=== PATIENT | male | born 1975 | race Caucasian/White ===

== ENCOUNTER 2021-11-13 15:19 | Inpatient (IN) | payer MEDICAID, SELFPAY ==
--- NOTE | 2021-11-13 15:27 | ED.C_ITS ---
HPI - Psych General: Chief Complaint: Psychiatric Symptoms Stated Complaint: PARANOID/ HALLUCINATING Time Seen by Provider: 11/13/21 15:26 History of Present Illness: Mr. Elizondo is a 46-year-old gentleman with reported history of paranoid schizophrenia not currently on medication and unclear of what medication he was previously on who presents to the emergency department due to paranoia and hallucinations. The patient himself offers very limited insight into his current mental state. He was observed by law enforcement talking to himself though he denies hallucinations. He reports that he has been walking a lot lately and has some mild leg discomfort but no injuries or other medical complaints. He reports no history of psychiatric hospitalizations and says that he previously followed at the [facility]. No other specific changes in health, exacerbating, or alleviating factors identified. Duration: getting worse Exacerbating factors: drug use Context: recent drug abuse and not taking psychiatric medications Associated symptoms: Reports auditory hallucinations and delusions Review of Systems General: Reports: 10 or more systems reviewed and unremarkable except in HPI a nd below Psych: Reports: auditory hallucinations [facility] ED PFSH: Medical History (Updated 11/25/21 @ 21:41 by Herbie Dee MD) Schizophrenia Surgical History (Updated 11/25/21 @ 21:41 by Herbie Dee MD) No significant past surgical history Physical Exam Const: COMMON NORMALS: alert GENERAL APPEARANCE: cooperative and well developed HENMT: COMMON NORMALS: normocephalic and atraumatic HEAD & SCALP: normocephalic and atraumatic THROAT: posterior oropharynx normal Eye: COMMON NORMALS: conjunctivae normal CONJUNCTIVA: Yes conjunctivae normal SCLERA: sclerae normal Neck/C-Spine: COMMON NORMALS: supple GENERAL: Yes trachea midline Resp: COMMON NORMALS: normal respiratory effort EFFORT & INSPECTION: Yes able to speak in complete sentences Cardio: COMMON NORMALS: regular rate and regular rhythm RATE: regular rate RHYTHM: regular rhythm GI: COMMON NORMALS: Soft to palpation PALPATION: Yes Soft to palpation and No Tenderness to palpation present (GI) Extremity: GENERAL: Yes normal exam except as noted and No edema Neuro: COMMON NORMALS: moves all extremities SENSORIUM/ORIENTATION: Yes alert and No Orientation impaired Psych: THOUGHT CONTENT: Yes delusions, Yes Hallucination(s) present and Yes Derealization present Course ED course: - Patient was seen and evaluated by me at bedside -Vital signs obtained - Initial evaluation notable for exam as above - Labs personally interpreted by me -Nicotine patch given - Labs notable for no leukocytosis, normal hemoglobin. No acute metabolic derangement to explain symptoms. Toxic ingestions negative, urine pending. - Upon serial reexamination after treatment the patient was similar - Based on patient history, evaluation, and testing as interpreted the most likely cause of the patient's condition is uncontrolled schizophrenia off medications -Based on ED evaluation at this point there is no obvious condition that would preclude the patient from inpatient management of psychiatric concerns - Admitting service was contacted and Dr Bhakta with psychiatry service agreed to admit the patient - Patient was admitted without further deterioration or significant events. Note: Click bubbles or prepopulated cash in note writing are used for assistance with data collection and billing and are inherently more limited than narrative and other text portions of this note. Please use narrative for additional clinical history and defer to narrative/free test for any case of contradictory information. If information appears in only free text or click bubble it should be considered present or absent as reported. Please contact note engineering writer for clarifications of clinical information or contradictory information. MDM is a brief summary, contradictory or erroneous seeming information should be clarified and full note should be reviewed. Vital Signs: Vital signs: Vital Signs Temperature 98.0 F 11/17/21 14:29 Pulse Rate 105 H 11/17/21 14:29 Respiratory Rate 18 11/17/21 14:29 Blood Pressure 108/76 11/17/21 14:29 Pulse Oximetry 96 11/17/21 14:29 Oxygen Delivery Wv thod 11/17/21 06:00 MDM - Psych Medical Decision Making 46-year-old gentleman with history schizophrenia not currently taking medications presenting with uncontrolled schizophrenia symptoms. Admitted for further management. Medical Records I reviewed the patient's medical records. Lab Data I reviewed the patient's lab results. : 11/13/21 16:29 11/13/21 16:29 Laboratory Results WBC 6.8 10^3/uL (4.0-10.0) 11/13/21 16: RBC 5.07 10^6/uL (4.1-5.3) 11/13/21 16: Hgb 13.0 g/dL (11.7-16.6) 11/13/21 16: Hct 40.9 % (42.0-52.0) L 11/13/21 16: MCV 80.7 fl (80-94) 11/13/21 16: MCH 25.6 pg (28.0-34.0) L 11/13/21 16: MCHC 31.8 g/dL (30.0-36.0) 11/13/21 16: RDW 13.2 % (12.1-15.1) 11/13/21: Plt Count 207 10^3/cmm (130-400) 11/13/21 16: MPV 10.4 fL (7.4-10.4) 11/13/21: Neut % (Auto) 55.7 % 11/13/21: Lymph % (Auto) 29.1 % 11/13/21: Karnes % (Auto) 8.6 % 11/13/21: Eos % (Auto) 5.6 % 11/13/21: Baso % (Auto) 0.7 % 11/13/21: Neut # (Auto) 3.80 10^3/uL (1.8-7.7) 11/13/21 16: Lymph # (Auto) 2.0 10^3/uL (0.8-4.8) 11/13/21: Karnes # (Auto) 0.6 10^3/uL (0.2-0.9) 11/13/21: Eos # (Auto) 0.4 10^3/uL (0.0-0.8) 11/13/21: Baso # (Auto) 0.1 10^3/uL (0.0-0.1) 11/13/21: Nucleated RBC % (auto) 0 % 11/13/21: Nucleated RBCs # 0.0 /100WBC 11/13/21 16: Sodium 139 mmol/L (136-145) 11/13/21 16: Potassium 3.7 mmol/L (3.5-5.1) 11/13/21 16: Chloride 102 mmol/L (98-107) 11/13/21 16: Carbon Dioxide 28 mmol/L (22-29) 11/13/21 16:29 Anion Gap 12.7 (5-19) 11/13/21 16:29 BUN 7 mg/dL (6-20) 11/13/21 16:29 Creatinine 0.7 mg/dL (0.7-1.2) 11/13/21 16:29 GFR Calculation 120.9 mL/min (90-130) 11/13/21 16:29 Glucose 89 mg/dL (65-115) 11/13/21 16:29 Calculated Osmolality 285 mOsm/kg (285-295) 11/13/21 16:29 Calcium 9.5 mg/dL (8.5-10.5) 11/13/21 16:29 Total Bilirubin 0.4 mg/dL (0.15-1.2) 11/13/21 16:29 AST 19 U/L (0-40) 11/13/21 16:29 ALT 18 U/L (0-41) 11/13/21 16:29 Alkaline Phosphatase 84 U/L (40-130) 11/13/21 16:29 Total Protein 7.2 g/dL (6.6-8.7) 11/13/21 16:29 Albumin 4.3 g/dL (3.5-5.2) 11/13/21 16:29 Globulin 2.9 g/dL (1.3-4.6) 11/13/21 16:29 TSH 0.67 uIU/mL (0.27-4.20) 11/13/21 16:29 Salicylates < 0.3 mg/dL (3-10) L 11/13/21 16:29 Acetaminophen < 5.0 ug/mL (10-30) L 11/13/21 16:29 Ethyl Alcohol < 10 mg/dL (0-10) 11/13/21 16:29 Discharge Plan Discharge Patient Disposition: Admitted As Inpatient Admit Provider: Hang Bhakta Clinical Impression: Acute psychosis Condition: Stable Discharge Diet: Regular Discharge Activity: Resume usual activity Coding Level of Care Code ED Wire Weaver Cloth for Citlali Mcallister
[2021-11-13 15:28] VITALS: BMI 31.2
[2021-11-13 15:32] VITALS: PULSE 82; RESP 16; TEMP 36.7; O2SAT 98
[2021-11-13 16:17] VITALS: BP 122/76; PULSE 90; RESP 16; O2SAT 100
--- NOTE | 2021-11-13 16:36 | PC.NURSE ---
Pt reports he was being held for 24 hours but was not under arrest, but that he needed medications refilled so the police brought him to the ED. Pt denies hallucinations, SI/HI, dizziness, lightheadedness, nausea, vomiting, chest pain, or shortness of breath. Caity and katiuska brought to pt.
[2021-11-13 16:47] LABS: Basophils # 0.1 10^3/uL (0.0-0.1); Basophils % 0.7 %; Eosinophils # 0.4 10^3/uL (0.0-0.8); Eosinophils % 5.6 %; Hematocrit 40.9 % (42.0-52.0); Lymphocytes % 29.1 %; Mean Corpuscular HGB Conc 31.8 g/dL (30.0-36.0); Mean Corpuscular Hemoglobin 25.6 pg (28.0-34.0); Mean Corpuscular Volume 80.7 fl (80-94); Mean Platelet Volume 10.4 fL (7.4-10.4); Monocytes # 0.6 10^3/uL (0.2-0.9); Monocytes % 8.6 %; Neutrophils % 55.7 %; Nucleated Red Blood Cells % 0 %; Platelet Count 207 10^3/cmm (130-400); Red Blood Count 5.07 10^6/uL (4.1-5.3); Red Cell Distribution Width 13.2 % (12.1-15.1); White Blood Count 6.8 10^3/uL (4.0-10.0)
[2021-11-13] MEDS: nicotine 14 mg Patch 1 PATCH TRANSDERMA (16:59)
--- NOTE | 2021-11-13 17:00 | PC.NURSE ---
pt was observed to be vaping in his room. vape removed and placed with other belongings. Charge nurse and physician notified. New orders for nicotine patch
[2021-11-13 17:20] LABS: Alanine Aminotransferase 18 U/L (0-41); Albumin Level 4.3 g/dL (3.5-5.2); Alkaline Phosphatase 84 U/L (40-130); Anion Gap 12.7 (5-19); Aspartate Amino Transferase 19 U/L (0-40); Blood Urea Nitrogen 7 mg/dL (6-20); Calcium 9.5 mg/dL (8.5-10.5); Carbon Dioxide 28 mmol/L (22-29); Chloride 102 mmol/L (98-107); Globulin 2.9 g/dL (1.3-4.6); Glomerular Filtration Rate 120.9 mL/min (90-130); Glucose 89 mg/dL (65-115); Osmolality Calculated 285 mOsm/kg (285-295); Potassium 3.7 mmol/L (3.5-5.1); Sodium 139 mmol/L (136-145); Thyroid Stimulating Hormone 0.67 uIU/mL (0.27-4.20); Total Bilirubin 0.4 mg/dL (0.15-1.2); Total Protein 7.2 g/dL (6.6-8.7)
[2021-11-13 17:21] LABS: Acetaminophen < 5.0 ug/mL (10-30); Alcohol Level < 10 mg/dL (0-10); Salicylate < 0.3 mg/dL (3-10)
--- NOTE | 2021-11-13 18:36 | PC.NURSE ---
report called to [facility] on [facility] and reports they are ready for the pt
[2021-11-13 18:47] VITALS: BP 118/76; PULSE 99; RESP 18; TEMP 36.7; O2SAT 99
[2021-11-13 22:00] VITALS: RESP 18
[2021-11-14] MEDS: benzocaine 20% 7 gm 1 APPLIC MUCOUS MEM ×3 (02:25→21:35)
[2021-11-14 06:00] VITALS: BP 118/71; PULSE 82; RESP 18; O2SAT 99
--- NOTE | 2021-11-14 08:56 | W.PM.NPUH&PS ---
Providers/Chief Complaint Admitting Physician: Hang Bhakta MD Chief Complaint: PARANOID/ HALLUCINATING HPI NPU History of Present Illness Avni Elizondo is a 46 year old male who presented to the emergency department with the following report: Chief Complaint: Psychiatric Symptoms Stated Complaint: PARANOID/ HALLUCINATING Time Seen by Provider: 11/13/21 15:26 History of Present Illness: Mr. Elizondo is a 46-year-old gentleman with reported history of paranoid schizophrenia not currently on medication and unclear of what medication he was previously on who presents to the emergency department due to paranoia and hallucinations. The patient himself offers very limited insight into his current mental state. He was observed by law enforcement talking to himself though he denies hallucinations. He reports that he has been walking a lot lately and has some mild leg discomfort but no injuries or other medical complaints. He reports no history of psychiatric hospitalizations and says that he previously followed at the [facility]. No other specific changes in health, exacerbating, or alleviating factors identified. He was admitted to the neuropsychiatric unit for definitive treatment of those issues. He presents today reporting he is trying to be prescribed psychiatric medications and presents as he needs to have his medications prescribed again as he lost them. 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 He reports a pack of cigarettes a day, denies alcohol, marijuana or any other illicit drug use. He has never been to drug and alcohol treatment, gotten a DUI or other drug related charges. He reports he is on psychiatric medications for paranoid schizophrenia and reports it began when he was 29 years old with feeling paranoid. He denies any periods of suicidal ideation or self-injurious behaviors. He reports when he was in long term he was told he was too loud in the hole when he was left by himself. He reports Risperdal was a medication that was effective for him in the past. He did appear guarded and irritable during the interview especially around questions of auditory and visual hallucinations in the past or currently. Psychiatric History: As above. Substance Abuse History: As above. Family History: He denies any mental health issues on either side of the family, addiction issues on his father?s side of the family and denies any suicide attempts or completions on either side of the family. Developmental History: He denies any issues with his or , learned to walk and talk and met his developmental milestones on time and reports he received special education classes. Psychosocial History: He reports his parents were together when he was born but did not remain together. He has 4 brothers of which he is the third child and neither of his parents had any additional children. He described his childhood as okay and denies any emotional, physical or sexual abuse. He denies any C[employer] involvement. He denies any other traumatic events or dony symptoms of PTSD. He graduated high school and did no additional training. He endorses being heterosexual with his longest relationship being 6 months. He has never been , does not have children, has never been in the and denies a worship belief system. 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 He currently lives in a trailer by himself. Legal History: He was in long term for 27 years one time. Medical History: He denies any known allergies to medications or medical issues. Meds NPU Home Medications Medication Instructions Recorded Confirmed Last Taken Type No Known Home Medications 11/13/21 11/13/21 Unknown History Allergies Allergy/AdvReac Type Severity Reaction Status Date / Time No Known Allergies Allergy Verified 11/13/21 18:46 Mental Status Exam MSE Comments: This is a very tall, overweight white male in hospital scrubs with adequate grooming and eye contact. No abnormal movements except for psychomotor retardation. Most cooperative with exam in no acute distress. Speech was limited and decreased rate and volume. Mood described as good, affect is irritable. Thought process, organized. Thought content: patient denies suicidal or homicidal ideation, no delusions reported or noted and denies any auditory or visual hallucinations but appears guarded. Attention and concentration are intact and memory appeared reliable but none were formally tested. He is alert and oriented three times. Insight and judgment are limited. Impulse control is limited. Vitals/I&O/Wt Last Vital Signs Temp 98.0 F 11/13/21 18:47 Pulse 82 11/14/21 06:00 Resp 18 11/14/21 06:00 BP 118/71 11/14/21 06:00 Pulse Ox 99 11/14/21 06:00 O2 Del Method 11/13/21 18:49 Weight last 48 hrs Weight 113.398 kg Data NPU : 11/13/21 16:29 11/13/21 16:29 A&P Assessment and plan (1) Acute psychosis: Status: Acute (2) Schizophrenia: Status: Acute Plan This is a 46 year old white male with a history of paranoid schizophrenia and genetic loading for addiction issues who presents reporting he needs his medications refilled as he lost them and denying any current issues with paranoia or hallucinations. 1. Continue current medications. Start Risperdal 0.5 mg p.o. twice daily. 2. Encourage individual, group and milieu therapy 3. Continue q-15 minute check for safety Involuntary Hold Information 96 Hour Hold: 96 Hour Involuntary Admission: No Attestations NPU Medical Necessity Statement*: Inpatient hospitalization is medically necessary and the clinically appropriate intervention at this time. We will monitor medications and make changes as indicated. Patient will be in the hospital for over two midnights. Likely length of stay is three to five days. Coding Level of Care Code Acute Supervisor Network Control Operators for Citlali Mcallister Diagnoses Acute psychosis F23 Schizophrenia F20.9
[2021-11-14] MEDS: risperiDONE 1 mg Tablet 0.5 MG PO ×2 (13:27→17:49)
[2021-11-14 14:00] VITALS: BP 114/68; PULSE 80; RESP 16; TEMP 36.6; O2SAT 94
--- NOTE | 2021-11-14 14:42 | PC.NURSE ---
NEW MED STARTED RISPERIDAL 0.5MG BID, PT AWARE AND NEW MEDICATION EDUCATION PROVIDED TO PT, PT VERB UNDERSTANDING
[2021-11-14 20:21] VITALS: BP 118/57; PULSE 94; RESP 18; TEMP 37.1; O2SAT 96
[2021-11-14] MEDS: ibuprofen 600 mg Tablet PO (21:37)
[2021-11-15] MEDS: benzocaine 20% 7 gm 1 APPLIC MUCOUS MEM ×2 (03:35→12:24)
[2021-11-15] MEDS: ibuprofen 600 mg Tablet PO ×3 (03:38→17:15)
[2021-11-15 06:00] VITALS: BP 123/80; PULSE 82; RESP 17; TEMP 36.6; O2SAT 98
[2021-11-15] MEDS: acetaminophen 325 mg Tablet 650 MG PO (07:01)
[2021-11-15] MEDS: risperiDONE 1 mg Tablet 0.5 MG PO ×2 (08:00→20:06)
--- NOTE | 2021-11-15 12:19 | P.NPUPN_ITS ---
Subjective NPU Subjective: Patient presents today reporting that he is feeling better with the Risperdal. We discussed continuing to titrated to effect. He was focused on a credit card that he states has $600 on it and he will get ready to do more at the first of the month. He is wanting to make sure that his card has not been compromised. We discussed working with the treatment team tomorrow to look at what his residential options are. He is very interested in leaving as soon as that option seems reasonable. Or in his words as soon as possible from your standpoint. Mental Status Exam MSE Comments: This is a very tall, overweight white male in hospital scrubs with adequate grooming and eye contact. No abnormal movements except for psychomotor retardation. Cooperative with exam in no acute distress. Speech was more spontaneous and decreased rate and volume. Mood described as better, affect is congruent. Thought process, organized. Thought content: patient denies suicidal or homicidal ideation, no delusions reported or noted and denies any auditory or visual hallucinations but appears guarded. Attention and concentration are intact and memory appeared reliable but none were formally tested. He is alert and oriented three times. Insight and judgment are limited. Impulse control is limited. Vitals/I&O/Wt Last Vital Signs Temp 97.9 F 11/15/21 06:00 Pulse 82 11/15/21 06:00 Resp 17 11/15/21 06:00 BP 123/80 11/15/21 06:00 Pulse Ox 98 11/15/21 06:00 O2 Del Method 11/14/21 14:00 Weight last 48 hrs Weight 96.434 kg Weight 113.398 kg Data NPU : 11/13/21 16:29 11/13/21 16:29 Involuntary Hold Information 96 Hour Hold: 96 Hour Involuntary Admission: No Attestations NPU Medical Necessity Statement*: Inpatient hospitalization is medically necessary and the clinically appropriate intervention at this time. We will monitor medications and make changes as indicated. Likely length of stay is 2-4 days. Coding Level of Care Code Acute Sales Floor Associate for Citlali Mcallister
[2021-11-15 13:58] VITALS: BP 100/63; PULSE 89; RESP 16; TEMP 36.8; O2SAT 96
[2021-11-15] MEDS: nicotine 2 mg Gum BUCCAL (20:34)
[2021-11-15 22:00] VITALS: BP 125/85; PULSE 98; RESP 20; TEMP 36.8; O2SAT 95
[2021-11-16] MEDS: ibuprofen 600 mg Tablet PO ×3 (01:02→18:45)
[2021-11-16 06:00] VITALS: BP 128/82; PULSE 81; RESP 20; TEMP 36.9; O2SAT 97
[2021-11-16] MEDS: benzocaine 20% 7 gm 1 APPLIC MUCOUS MEM ×2 (08:06→23:16)
[2021-11-16] MEDS: risperiDONE 1 mg Tablet 0.5 MG PO (08:06)
[2021-11-16] MEDS: risperiDONE 1 mg Tablet PO ×2 (13:17→17:39)
[2021-11-16 14:00] VITALS: BP 108/70; PULSE 119; RESP 16; TEMP 36.8; O2SAT 97
--- NOTE | 2021-11-16 15:16 | P.NPUPN_ITS ---
Subjective NPU Subjective: Patient presents today reporting that he is doing okay. He was somewhat frustrated because when he checked his cards he did not have any money on them. He reports that means he will not have money until the beginning of the month. He is working with the social work team and appears we can get him into a skilled nursing. We discussed the risk-benefit and alternatives of continuing with the increase to 1 mg p.o. twice daily of Risperdal and discharging him on that dose tomorrow morning, and he understood and agreed to proceed as is documented in this note.. Mental Status Exam MSE Comments: This is a very tall, overweight white male in hospital scrubs with adequate grooming and eye contact. No abnormal movements except for psychomotor retardation. Cooperative with exam in no acute distress. Speech was more spontaneous and more normal rate and volume. Mood described as better, affect is congruent. Thought process, organized. Thought content: patient denies suicidal or homicidal ideation, no delusions reported or noted and denies any auditory or visual hallucinations and appears less guarded. Attention and concentration are intact and memory appeared reliable but none were formally tested. He is alert and oriented three times. Insight and judgment are limited. Impulse control is limited. Intellectual ability seems limited. Vitals/I&O/Wt Last Vital Signs Temp 98.4 F 11/16/21 06:00 Pulse 81 11/16/21 06:00 Resp 20 H 11/16/21 06:00 BP 128/82 11/16/21 06:00 Pulse Ox 97 11/16/21 06:00 O2 Del Method 11/16/21 06:00 Weight last 48 hrs Weight 96.434 kg Data NPU : 11/13/21 16:29 11/13/21 16:29 A&P Assessment and plan (1) Acute psychosis: Status: Acute (2) Schizophrenia: Status: Acute Plan This is a 46 year old white male with a history of paranoid schizophrenia and genetic loading for addiction issues who presents reporting he needs his medications refilled as he lost them and denying any current issues with paranoia or hallucinations. There is some concern that there is possible intellectual disability versus borderline electro functioning. 1. Continue current medications. Increased Risperdal to 2 mg p.o. twice daily. 2. Encourage individual, group and milieu therapy 3. Continue q-15 minute check for safety. 4. Plan for discharge in the morning. Involuntary Hold Information 96 Hour Hold: 96 Hour Involuntary Admission: No Attestations NPU Medical Necessity Statement*: Inpatient hospitalization is medically necessary and the clinically appropriate intervention at this time. We will monitor medic ations and make changes as indicated. Likely length of stay is 1-3 days. Coding Level of Care Code Acute Airport Utility Worker for Citlali Mcallister Diagnoses Acute psychosis F23 Schizophrenia F20.9
[2021-11-16 21:19] VITALS: BP 115/72; PULSE 116; RESP 17; TEMP 36.4; O2SAT 99
[2021-11-16] MEDS: acetaminophen 325 mg Tablet 650 MG PO (23:14)
[2021-11-17] MEDS: ibuprofen 600 mg Tablet PO ×2 (00:51→08:58)
[2021-11-17] MEDS: hyDROXYzine 25 mg Capsule 50 MG PO (04:05)
[2021-11-17 06:00] VITALS: BP 108/76; PULSE 105; RESP 18; TEMP 36.7; O2SAT 96
[2021-11-17] MEDS: risperiDONE 1 mg Tablet PO (08:58)
--- NOTE | 2021-11-17 09:00 | PC.NURSE ---
Zahra with c/o r upper gum and tooth pain rated 10. Motrin 600 mg po given for this.
[2021-11-17] MEDS: OLANZapine 5 mg ODT PO (13:34)
--- NOTE | 2021-11-17 13:34 | PC.NURSE ---
Patient at nurses station talking to himself and shaking his head. Patient voices increased anxiety. Zydis 5 mg sl given for this.
--- NOTE | 2021-11-17 14:06 | W.PM.NPUDCS ---
Diagnoses at Discharge Discharge Diagnosis (1) Acute psychosis: Status: Acute (2) Schizophrenia: Status: Acute Reason for Visit Reason for Visit: PARANOID/ HALLUCINATING Brief History: History of Present Illness Avni Elizondo is a 46 year old male who presented to the emergency department with the following report: Chief Complaint: Psychiatric Symptoms Stated Complaint: PARANOID/ HALLUCINATING Time Seen by Provider: 11/13/21 15:26 History of Present Illness:?? Mr. Elizondo is a 46-year-old gentleman with reported history of paranoid schizophrenia not currently on medication and unclear of what medication he was previously on who presents to the emergency department due to paranoia and hallucinations.? The patient himself offers very limited insight into his current mental state.? He was observed by law enforcement talking to himself though he denies hallucinations.? He reports that he has been walking a lot lately and has some mild leg discomfort but no injuries or other medical complaints.? He reports no history of psychiatric hospitalizations and says that he previously followed at the [facility].? No other specific changes in health, exacerbating, or alleviating factors identified. He was admitted to the neuropsychiatric unit for definitive treatment of those issues. He presents today reporting he is trying to be prescribed psychiatric medications and presents as he needs to have his medications prescribed again as he lost them. 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 He reports a pack of cigarettes a day, denies alcohol, marijuana or any other illicit drug use. He has never been to drug and alcohol treatment, gotten a DUI or other drug related charges. He reports he is on psychiatric medications for paranoid schizophrenia and reports it began when he was 29 years old with feeling paranoid. He denies any periods of suicidal ideation or self-injurious behaviors. He reports when he was in senior care he was told he was too loud in the hole when he was left by himself. He reports Risperdal was a medication that was effective for him in the past. He did appear guarded and irritable during the interview especially around questions of auditory and visual hallucinations in the past or currently. Psychiatric History: As above. Substance Abuse History: As above. Family History: He denies any mental health issues on either side of the family, addiction issues on his father?s side of the family and denies any suicide attempts or completions on either side of the family. Developmental History: He denies any issues with his or , learned to walk and talk and met his developmental milestones on time and reports he received special education classes. Psychosocial History: He reports his parents were together when he was born but did not remain together. He has 4 brothers of which he is the third child and neither of his parents had any additional children. He described his childhood as okay and denies any emotional, physical or sexual abuse. He denies any [employer] involvement. He denies any other traumatic events or dony symptoms of PTSD. He graduated high school and did no additional training. He endorses being heterosexual with his longest relationship being 6 months. He has never been , does not have children, has never been in the and denies a temple belief system. 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 He currently lives in a trailer by himself. Legal History: He was in senior care for 27 years one time. Medical History: He denies any known allergies to medications or medical issues. Hospital Course Hospital Course He slowly acclimated to the individual, group and milieu therapies provided. He was clearly psychotic and admission with a reported history of success with Risperdal. Risperdal was initiated and titrated to 1 mg p.o. twice daily. He had modest improvement with likelihood for continued improvement with adherence to the medication. He worked with the social work team to assist him in finding a safe place to discharge. He was able to contract for safety outside the hospital prior to discharge. During the hospitalization, patient had routine laboratory studies which were within normal limits except for few outliers. Additionally there was a general medical evaluation which was also within normal limits and revealed no new acute processes. Discharge Summary: At the time of discharge, lethality was denied and psychosis was resolving. Mood and anxiety were well managed. Patient endorsed a plan to avoid all drugs of abuse and follow-up with the aftercare recommendations of the treatment team. Patient was evaluated and deemed to be absent credible lethality, and had achieved the maximum benefit from an inpatient hospitalization, so was discharged. Involuntary Hold Information 96 Hour Hold: 96 Hour Involuntary Admission: No Mental Status Exam MSE Comments: This is a very tall, overweight white male in hospital scrubs with adequate grooming and eye contact. No abnormal movements except for psychomotor retardation. Cooperative with exam in no acute distress. Speech was more spontaneous and more normal rate and volume. Mood described as better, affect is congruent. Thought process, organized. Thought content: patient denies suicidal or homicidal ideation, no delusions reported or noted and denies any auditory or visual hallucinations and appears less guarded. Attention and concentration are intact and memory appeared reliable but none were formally tested. He is alert and oriented three times. Insight and judgment are limited. Impulse control is limited. Intellectual ability seems limited. Discharge Data Studies Completed and Pending: Laboratory Results WBC 6.8 10^3/uL (4.0- 10.0) 11/13/21 16: RBC 5.07 10^6/uL (4.1 -5.3) 11/13/21 16: Hgb 13.0 g/dL (11.7-1 6.6) 11/13/21 16: Hct 40.9 % (42.0-52.0 ) L 11/13/21 16: MCV 80.7 fl (80-94) 11/13/21 16: MCH 25.6 pg (28.0-34. 0) L 11/13/21 16: MCHC 31.8 g/dL (30.0-3 6.0) 11/13/21 16: RDW 13.2 % (12.1-15.1 ) 11/13/21 16: Plt Count 207 10^3/cmm (130 -400) 11/13/21 16: MPV 10.4 fL (7.4-10.4 ) 11/13/21 16: Neut % (Auto) 55.7 % 11/13/21 16: Lymph % (Auto) 29.1 % 11/13/21 16: Sumner % (Auto) 8.6 % 11/13/21 16: Eos % (Auto) 5.6 % 11/13/21 16: Baso % (Auto) 0.7 % 11/13/21 16:29 Neut # (Auto) 3.80 10^3/uL (1.8 -7.7) 11/13/21 16: Lymph # (Auto) 2.0 10^3/uL (0.8- 4.8) 11/13/21 16:29 Sumner # (Auto) 0.6 10^3/uL (0.2- 0.9) 11/13/21 16: Eos # (Auto) 0.4 10^3/uL (0.0- 0.8) 11/13/21 16: Baso # (Auto) 0.1 10^3/uL (0.0- 0.1) 11/13/21 16: Nucleated RBC % (a uto) 0 % 11/13/21 16: Nucleated RBCs # 0.0 /100WBC 11/13/21 16:29 Sodium 139 mmol/L (136-1 45) 11/13/21 16: Potassium 3.7 mmol/L (3.5-5 .1) 11/13/21 16: Chloride 102 mmol/L (98-10 7) 11/13/21 16: Carbon Dioxide 28 mmol/L (22-29) 11/13/21 16: Anion Gap 12.7 (5-19) 11/13/21 16: BUN 7 mg/dL (6-20) 11/13/21 16: Creatinine 0.7 mg/dL (0.7-1. 2) 11/13/21 16: GFR Calculation 120.9 mL/min (90- 130) 11/13/21 16: Glucose 89 mg/dL (65-115) 11/13/21 16: Calculated Osmolal ity 285 mOsm/kg (285- 295) 11/13/21 16: Calcium 9.5 mg/dL (8.5-10 .5) 11/13/21 16: Total Bilirubin 0.4 mg/dL (0.15-1 .2) 11/13/21 16:29 AST 19 U/L (0-40) 11/13/21 16: ALT 18 U/L (0-41) 11/13/21 16:29 Alkaline Phosphata se 84 U/L (40-130) 11/13/21 16: Total Protein 7.2 g/dL (6.6-8.7 ) 11/13/21 16: Albumin 4.3 g/dL (3.5-5.2 ) 11/13/21 16: Globulin 2.9 g/dL (1.3-4.6 ) 11/13/21 16:29 TSH 0.67 uIU/mL (0.27 -4.20) 11/13/21 16:29 Salicylates < 0.3 mg/dL (3-10 ) L 11/13/21 16:29 Acetaminophen < 5.0 ug/mL (10-3 0) L 11/13/21 16:29 Ethyl Alcohol < 10 mg/dL (0-10) 11/13/21 16:29 Vitals: Last Vital Signs Temp 98.0 F 11/17/21 06:00 Pulse 105 H 11/17/21 06:00 Resp 18 11/17/21 06:00 BP 108/76 11/17/21 06:00 Pulse Ox 96 11/17/21 06:00 O2 Del Method 11/17/21 06:00 Discharge Plan Discharge Patient Disposition: Home Condition: Stable Prescriptions: New risperidone 1 mg Tablet 1 mg PO BID 30 Days Qty: 60 1RF Discharge Orders: Discharge Order (Routine); Ordered 11/17/21 Ordered By: Hang Bhakta Referrals: [facility] [Other] [facility] [place]Outside] - 11/18/21 8:30 am (Initial appointment ) Discharge Diet: Regular Discharge Activity: Resume usual activity Patient Instructions: Risperidone (By mouth), Schizophrenia (DC), Opioid Safety Discharge Attestations NPU Time Spent in Discharge Care*: less than 30 min Specific Discharge Activities: Specific discharge activities: educating patient, discussing with case management coordinator/social workers/dc planners, documenting/other paperwork and evaluating patient/reviewing data Coding Level of Care Code Acute Chg FW DC note Diagnoses Acute psychosis F23 Schizophrenia F20.9
[2021-11-17 14:29] VITALS: BP 108/76; PULSE 105; RESP 18; TEMP 36.7; O2SAT 96
== END 2021-11-17 14:29 | disposition home or self-care (01) | DRG 885 ==
LOC: ER 17:49 → NP 18:26
PROVIDERS: Admitting Provider Psychiatry & Neurology Psychiatry; Emergency Provider Emergency Medicine; Visit Provider Psychiatry & Neurology Psychiatry
DX: F20.0 Paranoid schizophrenia (principal)
CPT/HCPCS: 36415; 80053; 80307; 84443; 85025; 97150; 97165; 99285